=== PATIENT | female | born 1970 | race Caucasian/White ===

== ENCOUNTER 2018-03-23 19:33 | Emergency (ER) | payer OTHER ==
[2018-03-23 22:43] LABS: URINE BLOOD (Dip) POC 1+ (NEGATIVE); URINE GLUCOSE (Dip) POC Negative (NEGATIVE); URINE KETONES (Dip) POC Negative (NEGATIVE); URINE LEUKOCYTE EST (Dip) POC Negative (NEGATIVE); URINE NITRITE (Dip) POC Negative (NEGATIVE); URINE TOTAL PROTEIN POC Negative (NEGATIVE)
[2018-03-23 22:43] LABS: URINE PH (Dip) POC 6.5 (5.0-8.5)
[2018-03-23] MEDS: ACYCLOVIR 800 MG TAB PO (22:52)
== END 2018-03-24 00:29 | disposition home or self-care (01) ==
LOC: FTE 03-24 00:29
DX: B00.9 Herpesviral infection, unspecified (principal)
CPT/HCPCS: 81003; 81025; 99284

== ENCOUNTER 2018-04-03 19:18 | Emergency (ER) | payer OTHER | END 2018-04-03 22:07 | disposition home or self-care (01) | LOC: FTE 19:18 | DX: A60.1 Herpesviral infection of perianal skin and rectum (principal) | CPT/HCPCS: 99283; Z7502 ==